=== PATIENT | female | born 1990 | race Hispanic/Latino ===

== ENCOUNTER → 2017-09-08 | Emergency (ER) | payer SELFPAY ==
[2017-09-09 01:26] LABS: RAPID GROUP A STREP NEGATIVE (NEGATIVE)
== END ==
LOC: EDH 23:53
DX: J10.1 Influenza due to other identified influenza virus with other respiratory manifestations (principal); R50.81 Fever presenting with conditions classified elsewhere; I10 Essential (primary) hypertension; E78.5 Hyperlipidemia, unspecified; Z72.0 Tobacco use
CPT/HCPCS: 87804; 87880